=== PATIENT | female | born 1985 | race Caucasian/White ===

== ENCOUNTER 2017-11-27 04:11 | Inpatient (IN) ==
--- NOTE | 2017-11-27 04:44 | ED ---
History of Present Illness Primary Care Physician: Riley Gunter MD Chief Complaint: contractions Weeks Gestation:: 38 Para: 0 : 1 - Inpatient Certification I certify that the inpatient services were ordered in accordance with Medicare regulations governing the order. This includes certification that hospital inpatient services are reasonable and necessary and in the case of services not specified as inpatient-only under 42 CFR 419.22(n), that they are appropriately provided as inpatient services in accordance to with the 2-midnight benchmark under 43 CFR 412.3(e) Estimated Total Length of Stay (Days): 2 Plans for Post Hospital Care: Home Review of Systems All other systems reviewed negative except as stated in HPI [facility] - History History Provided By: Patient - Medical / Surgical Hx Neg / Unobtainable Medical Problems Denied: Yes (SVT since teens, 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, on metoprolol 25mg po daily) Surgical History: No Previous Surgery - Tobacco History Smoking Status: Never smoker - Alcohol History How Often Do You Have a Drink Containing Alcohol: Never - Substance Use History Substance History: No History of Abuse - Travel History History of Recent Travel: No Medications and Allergies Allergies Allergy/AdvReac Type Severity Reaction Status Date / Time No Known Allergies Allergy Unverified 11/25/17 22:28 Home Medications Medication Instructions Recorded Confirmed Type metoprolol tartrate 1 tab PO DAILY 11/25/17 11/25/17 History prenat.vits,hsin,axa-kbms-psaef 1 tab PO DAILY 11/25/17 11/25/17 History [ Vitamin] Exam Vital signs: Vital Signs 11/27/17 04:19 11/27/17 04:22 11/27/17 04:26 Temperature 97.9 F Pulse Rate 88 Respiratory Rate 16 Blood Pressure 149/90 H Narrative: GENERAL: Well-nourished, well-developed patient. ABDOMEN/GI: Abdomen soft, non-tender GENITOURINARY: Dilatation: 3 Effacement: 100 Station: -2 Presentation: ceph Membranes: i Uterine Contractions: strong FHT's: Category: 2 Baseline: -140 Reactive: + Variability: mod Decels: x 1, when placed on moniter EXTREMITIES: No cyanosis or edema. BACK: Nontender without obvious deformity. No CVA tenderness. NEUROLOGICAL: Awake and alert. Normal speech. Assessment and Plan - Plan Discharge Planning: Will admit in labor Discharge Plan - Physicians Team Primary Care Provider: Riley Gunter Attending Provider: Xavier Camacho
--- NOTE | 2017-11-27 04:45 | P.HPOB ---
History of Present Illness Primary Care Physician: Riley Gunter MD Chief Complaint: contractions History of Present Illness: 32 yo at 38 weeks, has care with [facility] and is admitted in labor. She was seen last night with mucous plug passage. She began venkata approximately 12:30am and the pain has been increasing. No history of ROM. Weeks Gestation:: 38 Para: 0 : 1 - Inpatient Certification I certify that the inpatient services were ordered in accordance with Medicare regulations governing the order. This includes certification that hospital inpatient services are reasonable and necessary and in the case of services not specified as inpatient-only under 42 CFR 419.22(n), that they are appropriately provided as inpatient services in accordance to with the 2-midnight benchmark under 43 CFR 412.3(e) Review of Systems All other systems reviewed negative except as stated in HPI [facility] - Medical / Surgical Hx Neg / Unobtainable Medical Problems Denied: Yes (SVT on metoprolol) Surgical History: No Previous Surgery - Tobacco History Smoking Status: Never smoker - Alcohol History How Often Do You Have a Drink Containing Alcohol: Never - Substance Use History Substance History: No History of Abuse - Travel History History of Recent Travel: No Medications and Allergies Allergies Allergy/AdvReac Type Severity Reaction Status Date / Time No Known Allergies Allergy Unverified 11/25/17 22:28 Home Medications Medication Instructions Recorded Confirmed Type metoprolol tartrate 1 tab PO DAILY 11/25/17 11/25/17 History prenat.vits,shin,wye-ibul-abhak 1 tab PO DAILY 11/25/17 11/25/17 History [ Vitamin] Exam Vital signs: Vital Signs 11/27/17 04:19 11/27/17 04:22 11/27/17 04:26 Temperature 97.9 F Pulse Rate 88 Respiratory Rate 16 Blood Pressure 149/90 H Narrative: GENERAL: Well-nourished, well-developed patient. SKIN: Warm and dry. HEAD: Normocephalic and atraumatic. CARDIOVASCULAR: Regular rate and rhythm without murmurs RESPIRATORY: Breath sounds equal bilaterally. ABDOMEN/GI: Abdomen soft, non-tender, bowel sounds present, no rebound, no guarding Gravid GENITOURINARY: Dilatation: 3 Effacement: 100 Station: -2 Presentation: ceph Membranes: I Uterine Contractions: strong FHT's: Category: 2 Baseline: 140 Reactive: + Variability: mod Decels: none since initially placed on moniter EXTREMITIES: No cyanosis or edema. BACK: Nontender without obvious deformity. No CVA tenderness. NEUROLOGICAL: Awake and alert. Normal speech. Caprini VTE Risk Assessment Caprini VTE Risk Assessment: No/Low Risk (score <= 1) Caprini Risk Assessment Model: Point Value = 1 Point Value = 2 Point Value = 3 Point Value = 5 Age 41-60 Minor surgery BMI > 25 kg/m2 Swollen legs Varicose veins or History of unexplained or recurrent spontaneous Oral contraceptives or hormone replacement Sepsis (< 1 month) Serious lung disease, including pneumonia (< 1 month) Abnormal pulmonary function Acute myocardial infarction Congestive heart failure (< 1 month) History of inflammatory bowel disease Medical patient at bed rest Age 61-74 Arthroscopic surgery Major open surgery (> 45 min) Laparoscopic surgery (> 45 min) Malignancy Confined to bed (> 72 hours) Immobilizing plaster cast Central venous access Age >= 75 History of VTE Family history of VTE Factor V Leiden Prothrombin [id number] Lupus anticoagulant Anticardiolipin antibodies Elevated serum homocysteine Heparin-induced thrombocytopenia Other congenital or acquired thrombophilia Stroke (< 1 month) Elective arthroplasty Hip, pelvis, or leg fracture Acute spinal cord injury (< 1 month) Prophylaxis Regimen: Total Risk Factor Score Risk Level Prophylaxis Regimen 0-1 Low Early ambulation 2 Moderate Order ONE of the following: *Sequential Compression Device (SCD) *Heparin 5000 units SQ BID 3-4 Higher Order ONE of the following medications: *Heparin 5000 units SQ TID *Enoxaparin/Lovenox 40 mg SQ daily (WT < 150 kg, CrCl > 30 mL/min) *Enoxaparin/Lovenox 30 mg SQ daily (WT < 150 kg, CrCl > 10-29 mL/min) *Enoxaparin/Lovenox 30 mg SQ BID (WT < 150 kg, CrCl > 30 mL/min) AND/OR *Sequential Compression Device (SCD) 5 or more Highest Order ONE of the following medications: *Heparin 5000 units SQ TID (Preferred with Epidurals) *Enoxaparin/Lovenox 40 mg SQ daily (WT < 150 kg, CrCl > 30 mL/min) *Enoxaparin/Lovenox 30 mg SQ daily (WT < 150 kg, CrCl > 10-29 mL/min) *Enoxaparin/Lovenox 30 mg SQ BID (WT < 150 kg, CrCl > 30 mL/min) AND *Sequential Compression Device (SCD) Assessment and Plan - Plan Will admit, moniter, routine labs, epidural upon request Dr Camacho notified of admission
[2017-11-27] MEDS ORDERED: fentaNYL Citrate Inj 100 MCG/2 ML Ampul IV.PUSH PRN (04:53)
[2017-11-27] MEDS ORDERED: Sodium Chlor 0.9% Inj 500 ML IV.SIG PRN (04:53)
[2017-11-27] MEDS ORDERED: Sod Chloride 0.9% Inj 1,000 ML IV.CONT PRN (04:53)
[2017-11-27] MEDS ORDERED: Oxytocin 30 Units/500ml Premix 30 UNITS/500 ML BAG IV.SIG ONE ×2 (04:53→09:30)
[2017-11-27] MEDS ORDERED: Naloxone Inj 0.4 MG/ML Vial IV.PUSH PRN ×2 (04:53→22:30)
[2017-11-27] MEDS ORDERED: Citric Acid/Sodium Citrate Liq 30 ML UDC PO SCH (05:00)
[2017-11-27 05:30] LABS: Baso % (Auto) 0.2 % (0.0-2.0); Eos # (Auto) 0.1 th/mm3 (0.0-0.4); Eos % (Auto) 0.6 % (0.0-4.0); Hemoglobin 11.6 gm/dL (11.6-15.3); Lymph # (Auto) 2.5 th/mm3 (1.0-4.8); Lymph % (Auto) 23.9 % (9.0-44.0); Mean Corpuscular HGB Conc 33.2 % (32.0-36.0); Mean Corpuscular Hemoglobin 28.8 pg (27.0-34.0); Mean Corpuscular Volume 86.9 fL (80.0-100.0); Mean Platelet Volume 9.3 fL (7.0-11.0); Mono # (Auto) 0.7 th/mm3 (0.0-0.9); Mono % (Auto) 6.9 % (0.0-8.0); Neut # (Auto) 7.2 th/mm3 (1.8-7.7); Neut % (Auto) 68.4 % (16.0-70.0); Platelet Count 250 th/mm3 (150-450); Red Blood Count 4.03 mil/mm3 (4.00-5.30); Red Cell Distribution Width 14.4 % (11.6-17.2); White Blood Count 10.6 th/mm3 (4.0-11.0)
[2017-11-27 06:33] LABS: Bacteria,Urine Moderate /hpf; Bilirubin,Urine Negative (Negative); Clarity,Urine Clear (Clear); Color,Urine Colorless (Yellw/Straw); Glucose,Urine (UA) Negative (Negative); Leukocyte Esterase,Urine Negative (Negative); Nitrite,Urine Negative (Negative); Specific Gravity,Urine 1.003 (1.002-1.035); Squamous Epithelial Cell,Urine <1 /hpf (0-5)
[2017-11-27 06:38] LABS: Amphetamine Urine With Conf Neg (Neg); Benzodiazepine Urine With Conf Neg (Neg)
--- NOTE | 2017-11-27 08:57 | P.OBLABOR ---
Subjective Interval history: feeling contractions more frequently and having back pain. Objective Vital Signs: Vital Signs - 8 hr 11/27/17 04:19 11/27/17 04:22 11/27/17 04:26 Temperature 97.9 F Pulse Rate 88 Respiratory Rate 16 Blood Pressure 149/90 H 11/27/17 04:31 11/27/17 06:06 11/27/17 06:15 Temperature 97.5 F L Pulse Rate 78 80 Respiratory Rate 18 Blood Pressure 126/61 127/70 11/27/17 07:39 11/27/17 07:40 11/27/17 08:35 Temperature 98.0 F Pulse Rate 85 83 Respiratory Rate 18 18 Blood Pressure 122/80 127/70 Objective: Pelvic Exam: Cervix: 3/90/-2 posterior, forebag present. Presentation: [ceph] Membranes: [intact or ruptured] Uterine Contractions: [3-5, irreg, difficult to trace] FHT's: Category:I Baseline: [140] Reactive: y] Variability: [mod] Decels: [-] Weeks Gestation: 38 Patient Started Active Labor: No Medical Induction of Labor: No Artificial Rupture of Membrane: No Artificial ROM Date: 11/27/17 Assessment and Plan - Plan 32 yo G1 at 38 weeks with PROM 1) PROM- neg gbs. No change in sve since admission. Will start pitocin. 2) SVT- on metoprolol 3) fetus - cat 1 tracing
[2017-11-27] MEDS ORDERED: Oxytocin 30 Units/500ml Premix 30 UNITS/500 ML BAG IV.SIG PRN (09:00)
[2017-11-27] MEDS ORDERED: Metoprolol Tartrate 25 MG Tablet PO SCH (09:00)
[2017-11-27] MEDS: fentaNYL Citrate Inj 100 MCG/2 ML Ampul IV.PUSH PRN ×2 (09:50→22:08)
[2017-11-27] MEDS ORDERED: fentaNYL 2MCG-Bupiv 0.125% Epi 150 ML EPIDURAL ONE (11:35)
[2017-11-27] MEDS ORDERED: Bupivacaine PF 0.25% Inj 10 ML Vial ONE ×2 (13:01→15:19)
[2017-11-27] MEDS ORDERED: fentaNYL 2MCG-Bupiv 0.125% Epi 150 ML EPIDURAL PRN (13:05)
[2017-11-27] MEDS ORDERED: fentaNYL Citrate Inj 100 MCG/2 ML Ampul EPIDURAL ONE (13:05)
[2017-11-27] MEDS ORDERED: Diphtheria/Tetanus/Pertussis Vaccine Inj 0.5 ML Syringe IM ONE (16:00)
[2017-11-27] MEDS ORDERED: Measles/Mumps/Rubella Vaccine Inj 0.5 ML Vial SQ ONE (16:00)
[2017-11-27] MEDS ORDERED: Lidocaine 2%/Epinephrine 1:100,000 Inj 20 ML Vial ONE ×2 (16:51→16:52)
[2017-11-27] MEDS ORDERED: Lidocaine PF 1% Inj 30 ML Vial ONE (18:04)
[2017-11-27] MEDS ORDERED: Benzocaine 20% Top Spray 60 ML Can TOPICAL PRN (22:30)
[2017-11-27] MEDS ORDERED: Bisacodyl 10 MG Supp RECTAL PRN (22:30)
[2017-11-27] MEDS ORDERED: Zolpidem Tartrate 5 MG Tablet PO PRN (22:30)
[2017-11-27] MEDS ORDERED: Oxytocin 30 Units/500ml Premix 30 UNITS/500 ML BAG IV.CONT SCH (22:30)
[2017-11-27] MEDS ORDERED: Witch Hazel 50%/Glyderin 12.5% 40 Pad Jar RECTAL PRN (22:30)
[2017-11-27] MEDS ORDERED: Acetaminophen 325 MG Tablet PO PRN (22:30)
--- NOTE | 2017-11-27 22:46 | P.OBDELI ---
Weeks Gestation: 38 Patient Started Active Labor: Yes Active Labor Start Date: 11/27/17 Medical Induction of Labor: No Anesthesia: Epidural Episiotomy: midline Vaginal Delivery: Vacuum Presentation: Occiput anterior Nuchal Cord: None Delayed Cord Clamping (45 sec): Yes Placenta: Spontaneous delivery Laceration: 3 deg Repair: Vicryl running Estimated blood loss (mL): 350 Infant: Female Infant Female A Weight: 3.62 kg score (1 min): 9 score (5 min): 9 Additional Information: Vaccuum assisted delivery as patient was too tired to push. Was pushing for 2 hours and was too tired as she was in severe pain all day. Delivered over a 2nd degree episiotomy which extended to a partial 3rd. Repair was done with 2-0, 3-0 vicryl in the usual fashion. She had severe back pain all day and the epidural was adjusted and extra doses given without relief. Repair was excellent. Rectum was explored.
[2017-11-28] MEDS: Metoprolol Tartrate 25 MG Tablet PO SCH ×3 (05:12→22:47)
[2017-11-28] MEDS: Senna/Docusate Sodium 8.6/50 MG Tablet PO SCH ×2 (08:14→21:31)
[2017-11-28] MEDS ORDERED: Prenatal Vit/Ca/Iron/Folic Acid Tablet PO SCH (09:00)
--- NOTE | 2017-11-28 10:25 | P.PNOB ---
Subjective Post day: 1 Interval history: Doing well Pain is well controlled Baby is doing great Bleeding is normal Objective Vital Signs/I&O: Vital Signs 11/27/17 10:45 11/27/17 11:31 11/27/17 11:35 Temperature 98.3 F Pulse Rate 82 86 Respiratory Rate 18 18 Blood Pressure 107/56 L 132/77 11/27/17 11:40 11/27/17 11:51 11/27/17 11:55 Temperature Pulse Rate 93 H 111 H 98 H Respiratory Rate Blood Pressure 129/84 11/27/17 11:56 11/27/17 12:05 11/27/17 12:26 Temperature Pulse Rate 91 H 89 84 Respiratory Rate Blood Pressure 120/65 120/64 121/66 11/27/17 12:30 11/27/17 12:46 11/27/17 12:50 Temperature Pulse Rate 95 H 91 H Respiratory Rate 18 Blood Pressure 114/62 11/27/17 12:55 11/27/17 13:15 11/27/17 13:25 Temperature 99.0 F Pulse Rate 96 H 102 H 86 Respiratory Rate 18 18 18 Blood Pressure 112/69 119/70 11/27/17 13:31 11/27/17 14:02 11/27/17 14:31 Temperature Pulse Rate 87 92 H 84 Respiratory Rate 20 Blood Pressure 121/76 129/85 124/69 11/27/17 14:42 11/27/17 14:45 11/27/17 15:01 Temperature 98.0 F Pulse Rate 96 H Respiratory Rate 20 Blood Pressure 109/59 L 11/27/17 15:31 11/27/17 15:45 11/27/17 16:07 Temperature 99.1 F Pulse Rate 94 H 95 H Respiratory Rate 18 Blood Pressure 120/64 126/74 11/27/17 16:15 11/27/17 16:31 11/27/17 16:50 Temperature Pulse Rate 85 76 Respiratory Rate 18 Blood Pressure 143/74 H 11/27/17 16:54 11/27/17 16:55 11/27/17 17:00 Temperature 98.2 F Pulse Rate 81 Respiratory Rate 18 Blood Pressure 142/78 H 11/27/17 17:10 11/27/17 17:45 11/27/17 17:55 Temperature Pulse Rate 87 96 H 95 H Respiratory Rate 18 Blood Pressure 140/71 11/27/17 18:05 11/27/17 18:15 11/27/17 18:31 Temperature Pulse Rate 100 H 94 H 95 H Respiratory Rate Blood Pressure 135/78 136/87 11/27/17 18:45 11/27/17 19:01 11/27/17 19:04 Temperature Pulse Rate 101 H 101 H Respiratory Rate 18 18 Blood Pressure 121/87 11/27/17 19:05 11/27/17 21:04 11/27/17 21:10 Temperature Pulse Rate 104 H 106 H Respiratory Rate Blood Pressure 144/74 H 11/27/17 21:15 11/27/17 22:25 11/27/17 22:30 Temperature 98.4 F Pulse Rate 110 H Respiratory Rate 18 Blood Pressure 149/70 H 11/27/17 22:55 11/27/17 23:30 11/27/17 23:31 Temperature Pulse Rate 91 H 90 Respiratory Rate 18 Blood Pressure 138/80 124/72 11/27/17 23:54 11/28/17 00:15 11/28/17 00:30 Temperature 98.1 F Pulse Rate 90 Respiratory Rate 18 18 Blood Pressure 128/73 11/28/17 01:00 11/28/17 01:30 11/28/17 07:58 Temperature 98.2 F Pulse Rate 87 90 91 H Respiratory Rate 18 18 9 L Blood Pressure 106/61 104/59 L 99/58 L 11/28/17 07:59 Temperature 98.1 F Pulse Rate Respiratory Rate Blood Pressure Result Diagrams: 11/27/17 04:50 Objective Remarks: GENERAL: Well-nourished, well-developed patient. CARDIOVASCULAR: Regular rate and rhythm without murmurs, gallops, or rubs. RESPIRATORY: Breath sounds equal bilaterally. No accessory muscle use. ABDOMEN/GI: Abdomen soft, non-tender. c/s scar is well healed Fundus: Firm, non-tender at umbilicus. GENITOURINARY: Light to moderate bleeding. EXTREMITIES: No cyanosis or edema, non-tender, without signs of DVT. Medications and IVs: Active Medications Acetaminophen (Tylenol) 650 mg PO Q4H PRN PRN Reason: PAIN SCALE 1 TO 2 Al Hydroxide/Mg Hydroxide (Milk Of Magnesia Liq) 30 ml PO Q12H PRN PRN Reason: Mild Constipation Benzocaine (Americaine 20% Top [place]) 1 spray TOPICAL Q4H PRN PRN Reason: For Perineum Discomfort Last Admin: 11/28/17 08:13 Dose: 1 spray Bisacodyl (Dulcolax Supp) 10 mg RECTAL DAILY PRN PRN Reason: SEVERE CONSITIPATION Ibuprofen (Motrin) 800 mg PO Q8H PRN PRN Reason: For cramping Last Admin: 11/28/17 08:14 Dose: 800 mg Lactulose (Lactulose Liq) 30 ml PO DAILY PRN PRN Reason: SEVERE CONSITIPATION Metoprolol Tartrate (Lopressor) 25 mg PO HS [facility] Last Admin: 11/28/17 05:12 Dose: Not Given Naloxone HCl (Narcan Inj) 0.1 mg IV.PUSH Q2M PRN PRN Reason: for opiate reversal Ondansetron HCl (Zofran Odt) 4 mg PO Q6H PRN PRN Reason: NAUSEA OR VOMITING Oxycodone/Acetaminophen (Percocet 5/325 Mg) 1 tab PO Q4H PRN PRN Reason: PAIN SCALE 6 TO 10 Last Admin: 11/28/17 04:08 Dose: 1 tab Vit/Calcium/Iron/Folic Ac (Stuartnatal Plus 3) 1 tab PO DAILY [facility] Last Admin: 11/28/17 08:14 Dose: 1 tab Senna/Docusate Sodium ([place]-Colace) 1 tab PO BID [facility] Last Admin: 11/28/17 08:14 Dose: 1 tab Sennosides (Senokot) 17.2 mg PO Q12H PRN PRN Reason: Moderate Constipation Sodium Chloride (Ns Flush) 2 ml IV.FLUSH BID [facility] Sodium Chloride (Ns Flush) 2 ml IV.FLUSH PRN PRN PRN Reason: FLUSH AFTER USING IV ACCESS Witch Lily/Glycerin (Tucks Pads) 1 applicatio RECTAL QID PRN PRN Reason: HEMORRHOIDS Last Admin: 11/28/17 08:13 Dose: 1 applicatio Zolpidem Tartrate (Ambien) 5 mg PO HS PRN PRN Reason: SLEEP Assessment and Plan - Plan PPD #1 Doing well SVT continue beta mahnaz Routine care
--- NOTE | 2017-11-29 14:30 | P.PNOB ---
Subjective Post day: 2 Interval history: Doing well Baby is fine Bleeding is normal Pain is well controlled. Objective Vital Signs/I&O: Vital Signs 11/28/17 20:00 11/28/17 21:40 11/29/17 08:00 Temperature 99.0 F 98.4 F 97.7 F Pulse Rate 87 74 Respiratory Rate 18 16 Blood Pressure 109/64 116/72 Result Diagrams: 11/27/17 04:50 Objective Remarks: GENERAL: Well-nourished, well-developed patient. CARDIOVASCULAR: Regular rate and rhythm without murmurs, gallops, or rubs. RESPIRATORY: Breath sounds equal bilaterally. No accessory muscle use. ABDOMEN/GI: Abdomen soft, non-tender. Fundus: Firm, non-tender at umbilicus. GENITOURINARY: Light to moderate bleeding. EXTREMITIES: No cyanosis or edema, non-tender, without signs of DVT. Medications and IVs: Active Medications Acetaminophen (Tylenol) 650 mg PO Q4H PRN PRN Reason: PAIN SCALE 1 TO 2 Al Hydroxide/Mg Hydroxide (Milk Of Magnesia Liq) 30 ml PO Q12H PRN PRN Reason: Mild Constipation Benzocaine (Americaine 20% Top [place]) 1 spray TOPICAL Q4H PRN PRN Reason: For Perineum Discomfort Last Admin: 11/28/17 08:13 Dose: 1 spray Bisacodyl (Dulcolax Supp) 10 mg RECTAL DAILY PRN PRN Reason: SEVERE CONSITIPATION Ibuprofen (Motrin) 800 mg PO Q8H PRN PRN Reason: For cramping Last Admin: 11/29/17 11:17 Dose: 800 mg Lactulose (Lactulose Liq) 30 ml PO DAILY PRN PRN Reason: SEVERE CONSITIPATION Metoprolol Tartrate (Lopressor) 25 mg PO HS [facility] Last Admin: 11/28/17 22:47 Dose: Not Given Naloxone HCl (Narcan Inj) 0.1 mg IV.PUSH Q2M PRN PRN Reason: for opiate reversal Ondansetron HCl (Zofran Odt) 4 mg PO Q6H PRN PRN Reason: NAUSEA OR VOMITING Oxycodone/Acetaminophen (Percocet 5/325 Mg) 1 tab PO Q4H PRN PRN Reason: PAIN SCALE 6 TO 10 Last Admin: 11/28/17 04:08 Dose: 1 tab Vit/Calcium/Iron/Folic Ac (Stuartnatal Plus 3) 1 tab PO DAILY COUNTS INCLUDE 234 BEDS AT THE [facility] Last Admin: 11/28/17 08:14 Dose: 1 tab Senna/Docusate Sodium ([place]-Colace) 1 tab PO BID COUNTS INCLUDE 234 BEDS AT THE [facility] Last Admin: 11/28/17 21:31 Dose: Not Given Sennosides (Senokot) 17.2 mg PO Q12H PRN PRN Reason: Moderate Constipation Sodium Chloride (Ns Flush) 2 ml IV.FLUSH BID COUNTS INCLUDE 234 BEDS AT THE [facility] Last Admin: 11/28/17 22:47 Dose: Not Given Sodium Chloride (Ns Flush) 2 ml IV.FLUSH PRN PRN PRN Reason: FLUSH AFTER USING IV ACCESS Witch Lily/Glycerin (Tucks Pads) 1 applicatio RECTAL QID PRN PRN Reason: HEMORRHOIDS Last Admin: 11/28/17 08:13 Dose: 1 applicatio Zolpidem Tartrate (Ambien) 5 mg PO HS PRN PRN Reason: SLEEP Assessment and Plan - Plan PPD #2 Doing well SVT continue beta mahnaz [facility]
== END 2017-11-29 15:30 | disposition home or self-care (01) ==
LOC: HOBED 04:11 → H2E 04:41 → H1EA 11-28 01:29
PROVIDERS: ADMIT Obstetrics & Gynecology; ATTEND Obstetrics & Gynecology